=== PATIENT | male | born 1965 | race Caucasian/White ===

== ENCOUNTER 2020-04-27 19:15 | Outpatient (REF) | payer BC, SELFPAY ==
--- NOTE | 2020-04-27 19:45 | MR_ITS ---
EXAMINATION: MR LUMBAR SPINE WITHOUT CONTRAST CLINICAL INFORMATION: Back pain radiating to right leg. COMPARISON: None TECHNIQUE: MRI of the lumbar spine was obtained using routine sequences without contrast. FINDINGS: VERTEBRAL BODIES AND PARASPINAL STRUCTURES: The marrow signal is within normal limits. There is moderate multilevel disc space narrowing with endplate osteophyte formation. Mild posterior subluxation evident at the L2-L3 level. There is a very mild leftward curvature of the mid lumbar spine. No compression fractures identified. The paraspinal soft tissues appear normal. The imaged bony pelvis is unremarkable. CONUS MEDULLARIS AND CAUDA EQUINA: Normal, terminating at the level of L1. No lower cord signal abnormality is seen. There is a nondependent configuration of the cauda equina nerve roots within the thecal sac due to severity of central canal stenosis at L2-L3. SPINAL LEVELS: T11-T12: Anterior endplate spurring. No disc pathology. Moderate facet degeneration with hvsv-mb-unlpysjm foraminal encroachment. T12-L1: Shallow right paracentral disc protrusion with mild impression upon the ventral thecal sac. No central canal stenosis or foraminal narrowing. L1-L2: Diffuse disc bulge with anterior endplate spurring. Bulging disc distorts the ventral thecal sac. Mild central canal stenosis. Lateralized bulging disc without foraminal encroachment. L2-L3: Retrosubluxation and diffuse disc bulge with a right paracentral disc extrusion migrating inferiorly to the mid L3 vertebral body level. Hypertrophic facet arthropathy also present. Findings result in severe central canal stenosis and thecal sac compression. Presumptive mass effect upon both L3 nerve roots in the subarticular zones. Generalized disc bulge with xfci-fh-wxziziid foraminal encroachment. L3-L4: Diffuse disc bulge and shallow right paracentral disc protrusion with tlei-ux-lfjqmfuf facet arthropathy. Mild central canal stenosis. Exiting right L3 nerve root with mild distortion from lateralized bulging disc and endplate spurring. Moderate bilateral foraminal narrowing. L4-L5: Hypertrophic facet arthropathy without central canal stenosis. No focal disc protrusion or central canal stenosis. Mild right foraminal narrowing. L5-S1: Slight retrosubluxation and posterior disc bulge with facet spurring. No central canal stenosis. Right foraminal disc protrusion with mild distortion of the exiting right L5 nerve root. Left subarticular zone disc protrusion with facet spurring result in mass effect upon the left S1 nerve root. Osseous spurring and bulging disc result in significant left foraminal encroachment with distortion of the extraforaminal left L5 nerve root laterally. MR/MR lumbar spine wo con IMPRESSION: Moderate multilevel lumbar spondylosis, most severe at L2-L3 with a retrosubluxation, disc bulge, and facet arthropathy resulting in severe central canal stenosis. Additional significant thecal sac compression in part related to a right paracentral disc extrusion migrating inferiorly. Compression of both L3 nerve roots in the subarticular zones. Right paracentral disc protrusion at L3-L4 with mild central canal stenosis. Distortion of the right L3 nerve root due to a lateralized bulging disc and endplate spurring. Moderate foraminal narrowing. Retrosubluxation and disc bulge at L5-S1 with facet spurring. Right foraminal disc protrusion distorts the exiting right L5 nerve root. Left subarticular zone disc protrusion and facet spurring result in mass effect upon the left S1 nerve root. Additional lateralized bulging disc and endplate spurring with significant left foraminal encroachment and distortion of the extraforaminal left L5 nerve root.
== END 2020-04-27 19:16 | disposition home or self-care (01) ==
LOC: HO.MRI 19:15
PROVIDERS: Visit Provider Internal Medicine
DX: M54.41 Lumbago with sciatica, right side (principal)
CPT/HCPCS: 72148

== ENCOUNTER 2020-10-19 09:52 | Outpatient (REF) | payer BC, SELFPAY ==
--- NOTE | ~2020-10-19 | XR_ITS ---
EXAMINATION: XR ABDOMEN KUB CLINICAL INDICATION: Abdominal pain, constipation COMPARISON: None TECHNIQUE: AP view of the abdomen. FINDINGS: There is scattered is minimal gas seen in the small bowel loops. There is no colonic distention. There is no organomegaly. No radiopaque calculi seen. There is mild spondylosis lumbar spine. No lytic process. XR/XR KUB IMPRESSION: No acute process.
== END 2020-10-19 09:53 | disposition home or self-care (01) ==
LOC: HO.XRAY 09:52
PROVIDERS: PCP Internal Medicine; Visit Provider Internal Medicine
DX: R10.9 Unspecified abdominal pain (principal)
CPT/HCPCS: 74018

== ENCOUNTER 2020-10-20 10:12 | Outpatient (REF) | payer BC, SELFPAY ==
[2020-10-20 13:44] LABS: MANUAL DIFF FLAG NO
[2020-10-20 13:55] LABS: Basophils Absolute Auto 0.1 X10*3/uL (0.0-0.2); Basophils Percent Auto 0.5 % (0-2); Eosinophils Absolute Auto 0.3 X10*3/uL (0.0-0.4); Eosinophils Percent Auto 2.1 % (0-4); Hematocrit 44.1 % (42-52); Hemoglobin 14.6 g/dl (14.0-18.0); Imm Gran Abs Auto 0.07 X10*3/uL (0.00-0.03); Imm Gran Pct Auto 0.5 % (0.0-0.4); Lymphocytes Absolute Auto 3.6 X10*3/uL (1.2-4.9); Lymphocytes Percent Auto 27.6 % (20-40); Mean Corpuscular HGB Conc 33.1 g/dl (31.0-36.0); Mean Corpuscular Hemoglobin 29.7 pg (27.0-33.0); Mean Corpuscular Volume 89.8 fL (80-98); Mean Platelet Volume 11.3 fL (9.4-12.4); Monocytes Absolute Auto 0.8 X10*3/uL (0.1-1.2); Monocytes Percent Auto 5.7 % (2-11); Neutrophils Absolute Auto 8.4 X10*3/uL (2.0-8.3); Neutrophils Percent Auto 63.6 % (45-73); Platelet Count 344 X10*3/uL (160-400); Red Blood Count 4.91 X10*6/uL (4.60-5.80); White Blood Count 13.2 X10*3/uL (4.8-10.8)
[2020-10-20 14:40] LABS: Alanine Aminotransferase 37 U/L (0-40); Alkaline Phosphatase 87 U/L (39-117); Aspartate Amino Transferase 22 U/L (5-37); Chloride 106 mmol/L (96-108); Estimated Glomerular Filt Rate > 60; Potassium 4.5 mmol/L (3.3-5.1); Sodium 140 mmol/L (135-145); Total Protein 7.1 g/dL (6.5-8.0)
[2020-10-20 14:43] LABS: Albumin Level 4.3 g/dL (3.5-5.0); Anion Gap 15 (12-20); Blood Urea Nitrogen 13 mg/dL (9-16); C Reactive Protein 1.63 mg/dL (< or = 0.50); Calcium 10.2 mg/dL (8.4-10.2); Carbon Dioxide 24 mmol/L (22-29); Cholesterol 173 mg/dL; Glucose Random 78 mg/dL (60-115)
[2020-10-20 17:00] LABS: Bilirubin Total 0.3 mg/dL (0.0-1.0)
== END 2020-10-20 10:13 | disposition home or self-care (01) ==
LOC: HO.10HDL 10:12
PROVIDERS: Visit Provider Internal Medicine
DX: R10.9 Unspecified abdominal pain (principal); J45.909 Unspecified asthma, uncomplicated; K59.00 Constipation, unspecified; E78.5 Hyperlipidemia, unspecified
CPT/HCPCS: 36415; 80053; 82465; 85025; 86140

== ENCOUNTER 2020-10-27 11:48 | Outpatient (REF) | payer BC, SELFPAY ==
--- NOTE | ~2020-10-27 | CT_ITS ---
EXAMINATION: CT ABDOMEN AND PELVIS WITH CONTRAST CLINICAL INFORMATION: Left lower quadrant pain COMPARISON: KUB 10/12/2019 TECHNIQUE: Multidetector volumetric images were obtained from the superior aspect of the liver through the pubic symphysis following administration 85 mL of Omnipaque 350 intravenous contrast. Sagittal and coronal reformatted images were obtained on the technologist's workstation. Oral contrast: Yes This CT examination was performed using dose optimization techniques as appropriate, variously including the following: *Automated exposure control *Adjustment of mA and/or kV according to patient size (this includes techniques or standardized protocols for targeted exams where dose is matched to indication/reason for exam; i.e. extremities or head) *Use of iterative reconstruction technique DLP: 446 mGy-cm FINDINGS: LUNG BASES: The visualized lung bases are unremarkable. LIVER, GALLBLADDER, AND BILIARY TREE: The liver is low in attenuation suggestive of fatty infiltration. No focal liver lesion or biliary ductal dilatation is seen. The gallbladder is unremarkable with no evidence of radiopaque gallstones, gallbladder wall thickening, or obvious pericholecystic inflammatory changes. PANCREAS: Unremarkable. SPLEEN: Unremarkable. ADRENAL GLANDS: Unremarkable. KIDNEYS AND URETERS: The kidneys are normal in size, shape, and attenuation. No hydronephrosis, hydroureter, or calculi seen. No perinephric stranding. BLADDER: Not optimally distended GASTROINTESTINAL TRACT: There is diverticulosis of the colon. There is wall thickening of the distal left colon and stranding of the surrounding fat suggestive of mild diverticulitis. No evidence of obstruction, perforation or abscess is seen small and large bowel is otherwise unremarkable. ABDOMINAL WALL: No significant hernia is appreciated. LYMPH NODES: Normal. VASCULAR: There is evidence of atherosclerotic disease. No aneurysm is seen. PELVIC VISCERA: Unremarkable. OSSEOUS STRUCTURES: There are degenerative changes of the spine. CT/CT abdomen pelvis w con IMPRESSION: Left colon diverticulitis.
[2020-10-27] MEDS: iohexoL 350 MG/ML 100 ML INFUS..BTL IV (15:08)
[2020-10-27] MEDS: Barium Sulfate Oral (Mocha) 450 ML ORAL.SUSP 900 ML PO (15:09)
== END 2020-10-27 11:49 | disposition home or self-care (01) ==
LOC: HO.CT 11:48
PROVIDERS: PCP Internal Medicine; Visit Provider Internal Medicine
DX: R10.32 Left lower quadrant pain (principal); K57.32 Diverticulitis of large intestine without perforation or abscess without bleeding
CPT/HCPCS: 74177; Q9967

== ENCOUNTER → 2021-08-31 13:36 | Outpatient (RCR) | payer BC, SELFPAY ==
--- NOTE | 2020-02-13 16:57 | MHC.PT.EP ---
[facility] [place] Office [place] Office [place] Office [address] Cooper Bazzi [address] [phone] F: [phone] F: [phone] F: [phone] F: [phone] Physical Therapy Plan of Care Date of Evaluation: 02/13/20 Date of Surgery: Diagnosis: LBP Assessment: Pt is a 54 y/o male referred to PT for eval and treat of LBP who presents with signs and Sx consistent with lumbar radiculopathy resulting in decreased tolerance for sitting, standing and walking for duration, squatting and trunk flexion activities, lifting objects of weight, as well as disturbed sleep secondary to decreased trunk ROM and strength, decreased lumbar lordosis, R LE radicular Sx, (+) reduction in radicular Sx with Festus extension activities, and pain. Pt is deemed an appropriate candidate to receive skilled PT services to address his functional impairments in order to improve his function and return to PLOF which was unrestricted. Frequency and Duration: The patient will be seen 2x/wk x 5 wks. Short Term Goals: in 3 weeks: R LE radicular Sx abolished. In 1 week initiate HEP with evidence of compliance. Prison Goals: In 5 weeks: I with HEP. In 5 weeks: Pt will report no pain while walking; initial: pain prevents me from walking long distances. Treatment Plan: Modalities to reduce pain, spasms and effusion. Manual therapy to restore motion and function. Therapeutic exercise to improve strength and flexibility. Neuromuscular re-education for posture and balance. Therapeutic activities to return to functional activities of daily living. Please sign and return to therapist. Thank you for your referral.
--- NOTE | 2020-05-10 08:27 | MHC.PT.DC ---
[facility] [place] Office [place] Office [place] Office [address] Cooper Bazzi [address] [phone] F: [phone] F: [phone] F: [phone] F: [phone] Physical Therapy Discharge Report Diagnosis: LBP Date of Surgery: Date of Evaluation: 02/13/20 Date of Discharge: 04/20/20 Treatments to Date: 15 Cancellations to Date: 0 No Shows to Date: 0 Discharge Status: Independent with HEP Patient Elected to Stop Physician Discontinued Tx Discharge Summary: Jam had been an active participant in his therapy in the clinic having significantly improved his symptoms while on light work duty though he regressed also significantly with increased demands at work. He received an MRI and will be seeking other management at this time. Electronically signed by: Hayden Camarillo PT. Please sign and return to therapist. Thank you for your referral.
--- NOTE | 2020-06-28 16:27 | MHC.PT.EP ---
[facility] [place] Office [place] Office [place] Office [address] Cooper Bazzi [address] [phone] F: [phone] F: [phone] F: [phone] F: [phone] Physical Therapy Plan of Care Date of Evaluation: 04/20/20 Date of Surgery: Diagnosis: LBP Assessment: Pt is a 54 y/o male referred to PT for eval and treat of LBP who presents with signs and Sx consistent with lumbar radiculopathy resulting in decreased tolerance for sitting, standing and walking for duration, squatting and trunk flexion activities, lifting objects of weight, as well as disturbed sleep secondary to decreased trunk ROM and strength, decreased lumbar lordosis, R LE radicular Sx, (+) reduction in radicular Sx with Festus extension activities, and pain. Pt is deemed an appropriate candidate to receive skilled PT services to address his functional impairments in order to improve his function and return to PLOF which was unrestricted. Frequency and Duration: The patient will be seen 2x/wk x 5 wks. Short Term Goals: in 3 weeks: R LE radicular Sx abolished. In 1 week initiate HEP with evidence of compliance. Long-Term Goals: In 5 weeks: I with HEP. In 5 weeks: Pt will report no pain while walking; initial: pain prevents me from walking long distances. Treatment Plan: Modalities to reduce pain, spasms and effusion. Manual therapy to restore motion and function. Therapeutic exercise to improve strength and flexibility. Neuromuscular re-education for posture and balance. Therapeutic activities to return to functional activities of daily living. Electronically signed by: Hayden Camarillo PT. Please sign and return to therapist. Thank you for your referral.
== END | disposition home or self-care (01) ==
LOC: HO.PTCHIC 02-13 14:49
PROVIDERS: PCP Internal Medicine; Visit Provider Internal Medicine
DX: M54.5 Low back pain (principal)
CPT/HCPCS: 97012; 97014; 97110; 97140; 97161

== ENCOUNTER 2022-10-02 10:31 | Outpatient (REF) | payer OTHER, SELFPAY ==
[2022-10-02 13:17] LABS: MANUAL DIFF FLAG NO
[2022-10-02 13:21] LABS: Basophils Absolute Auto 0.1 X10*3/uL (0.0-0.2); Basophils Percent Auto 0.6 % (0-2); Eosinophils Absolute Auto 0.2 X10*3/uL (0.0-0.4); Eosinophils Percent Auto 1.5 % (0-4); Hemoglobin 17.2 g/dl (14.0-18.0); Imm Gran Abs Auto 0.09 X10*3/uL (0.00-0.03); Imm Gran Pct Auto 0.6 % (0.0-0.4); Lymphocytes Absolute Auto 3.9 X10*3/uL (1.2-4.9); Lymphocytes Percent Auto 27.6 % (20-40); Mean Corpuscular HGB Conc 33.7 g/dl (31.0-36.0); Mean Corpuscular Hemoglobin 30.2 pg (27.0-33.0); Mean Corpuscular Volume 89.5 fL (80.0-98.0); Mean Platelet Volume 11.6 fL (9.4-12.4); Monocytes Absolute Auto 0.9 X10*3/uL (0.1-1.2); Monocytes Percent Auto 6.1 % (2-11); Neutrophils Absolute Auto 8.9 x10*3/uL (2.0-8.3); Neutrophils Percent Auto 63.6 % (45-73); Platelet Count 227 X10*3/uL (160-400); Red Cell Distribution Width 12.8 % (11.0-16.0)
[2022-10-02 13:42] LABS: Alanine Aminotransferase 83 U/L (0-40); Albumin Level 4.4 g/dL (3.5-5.0); Alkaline Phosphatase 81 U/L (39-117); Anion Gap 14 (12-20); Aspartate Amino Transferase 43 U/L (5-37); Bilirubin Total 0.7 mg/dL (0.0-1.0); Blood Urea Nitrogen 7 mg/dL (9-16); Calcium 10.3 mg/dL (8.4-10.2); Carbon Dioxide 23 mmol/L (22-29); Chloride 105 mmol/L (96-108); Cholesterol 186 mg/dL; Estimated Glomerular Filt Rate > 60; Glucose Random 95 mg/dL (60-115); HDL Cholesterol 28 mg/dL; LDL Cholesterol Calculated 111 mg/dl; Potassium 4.8 mmol/L (3.3-5.1); Sodium 137 mmol/L (135-145); Total Protein 7.2 g/dL (6.5-8.0); Triglycerides 236 mg/dL
[2022-10-02 13:51] LABS: Prostate Specific Antigen 0.56 ng/mL (<0.05-4.0)
== END 2022-10-02 10:32 | disposition home or self-care (01) ==
LOC: HO.10HDL 10:31
PROVIDERS: Visit Provider Internal Medicine
DX: Z12.5 Encounter for screening for malignant neoplasm of prostate (principal); E78.00 Pure hypercholesterolemia, unspecified; J45.909 Unspecified asthma, uncomplicated; G62.9 Polyneuropathy, unspecified
CPT/HCPCS: 36415; 80053; 80061; 84153; 85025

== ENCOUNTER 2022-10-11 10:04 | Outpatient (REF) | payer OTHER, SELFPAY ==
[2022-10-11 10:56] LABS: Appearance Urine Clear; Color Urine Yellow; Glucose Urine UA Negative (Negative); Leukocyte Esterase Urine Negative (Negative); Nitrite Urine Negative (Negative); PH 6.5 (5.0-9.0); Specific Gravity - Urine <= 1.005 (1.005-1.025); Urine Blood Negative (Negative); Urine Ketones Negative (Negative); Urine Protein Negative (Neg-Trace)
[2022-10-11 12:17] LABS: Free T4 (Free Thyroxine) 0.96 ng/dL (0.71-1.85); Thyroid Stimulating Hormone 1.02 uIU/mL (0.32-4.0)
== END 2022-10-11 10:05 | disposition home or self-care (01) ==
LOC: HO.10HDL 10:04
PROVIDERS: Visit Provider Internal Medicine
DX: R63.4 Abnormal weight loss (principal); K57.32 Diverticulitis of large intestine without perforation or abscess without bleeding
CPT/HCPCS: 36415; 81003; 84439; 84443

== ENCOUNTER 2023-02-13 10:00 | Outpatient (REF) | payer OTHER, SELFPAY ==
[2023-02-13 10:49] LABS: MANUAL DIFF FLAG NO
[2023-02-13 10:52] LABS: Basophils Absolute Auto 0.1 X10*3/uL (0.0-0.2); Basophils Percent Auto 0.5 % (0-2); Eosinophils Absolute Auto 0.1 X10*3/uL (0.0-0.4); Eosinophils Percent Auto 1.2 % (0-4); Hematocrit 51.4 % (42.0-52.0); Hemoglobin 17.4 g/dl (14.0-18.0); Imm Gran Abs Auto 0.07 X10*3/uL (0.00-0.03); Imm Gran Pct Auto 0.6 % (0.0-0.4); Lymphocytes Absolute Auto 3.4 X10*3/uL (1.2-4.9); Lymphocytes Percent Auto 28.9 % (20-40); Mean Corpuscular HGB Conc 33.9 g/dl (31.0-36.0); Mean Corpuscular Volume 88.6 fL (80.0-98.0); Monocytes Absolute Auto 0.7 X10*3/uL (0.1-1.2); Monocytes Percent Auto 5.6 % (2-11); Neutrophils Absolute Auto 7.4 x10*3/uL (2.0-8.3); Neutrophils Percent Auto 63.2 % (45-73); Platelet Count 242 X10*3/uL (160-400); Red Cell Distribution Width 12.8 % (11.0-16.0); White Blood Count 11.6 X10*3/uL (4.8-10.8)
[2023-02-13 11:37] LABS: Alanine Aminotransferase 58 U/L (0-40); Albumin Level 4.5 g/dL (3.5-5.0); Alkaline Phosphatase 79 U/L (39-117); Anion Gap 12 (12-20); Aspartate Amino Transferase 37 U/L (5-37); Bilirubin Total 0.6 mg/dL (0.0-1.0); Blood Urea Nitrogen 10 mg/dL (9-16); Calcium 10.4 mg/dL (8.4-10.2); Carbon Dioxide 27 mmol/L (22-29); Chloride 105 mmol/L (96-108); Cholesterol 185 mg/dL (<200); Estimated Glomerular Filt Rate > 60; Glucose Fasting 105 mg/dL (60-99); HDL Cholesterol 25 mg/dL (>40); LDL Cholesterol Calculated 119 mg/dL (<100); Potassium 4.4 mmol/L (3.3-5.1); Sodium 140 mmol/L (135-145); Total Protein 7.6 g/dL (6.5-8.0); Triglycerides 206 mg/dL (<150)
== END 2023-02-13 10:01 | disposition home or self-care (01) ==
LOC: HO.10HDL 10:00
PROVIDERS: Visit Provider Internal Medicine
DX: E78.5 Hyperlipidemia, unspecified (principal); R79.89 Other specified abnormal findings of blood chemistry
CPT/HCPCS: 36415; 80053; 80061; 85025

== ENCOUNTER 2023-03-19 09:13 | Outpatient (REF) | payer OTHER, SELFPAY ==
[2023-03-19 11:33] LABS: Alanine Aminotransferase 55 U/L (0-40); Albumin Level 4.4 g/dL (3.5-5.0); Alkaline Phosphatase 82 U/L (39-117); Aspartate Amino Transferase 28 U/L (5-37); Bilirubin Direct 0.2 mg/dL (0.0-0.5); Bilirubin Total 0.4 mg/dL (0.0-1.0); Iron 72 mcg/dL (45-160); Percent Iron Saturation 22 % (15-50); Total Iron Binding Capacity 329 mcg/dL (228-428); Total Protein 7.4 g/dL (6.5-8.0); Unsaturated Iron Binding 257 ug/dL
[2023-03-19 11:41] LABS: Ferritin 160 ng/mL (20-250)
[2023-03-19 11:54] LABS: HBS Num1 9.84 mIU/mL (0-7.99); HBc Num1 0.17 S/CO (0.00-0.79); Hepatitis B Core Antibody Nonreactive (Nonreactive); Hepatitis B Surface Antigen Negative (Negative); ~HepC Num1 0.12 S/CO (0.00-0.79); ~Hepatitis C Antibody Nonreactive (Nonreactive)
[2023-03-19 12:48] LABS: HBS Num2 9.62 mIU/mL (0-7.99); HBS Num3 9.67 mIU/mL (0-7.99); ~Hepatitis B Surface Antibody GRAYZONE (Nonreactive)
[2023-03-20 11:13] LABS: Alpha 1 Anti-trypsin 138 mg/dL (83-199)
[2023-03-21 09:33] LABS: Anti Nuclear Antibody Screen NEGATIVE (NEGATIVE)
[2023-03-22 10:00] LABS: Smooth Muscle Antibody <20 U (<20)
[2023-03-22 15:28] LABS: Mitochondrial Antibodies NEGATIVE (NEGATIVE)
[2023-03-23 00:23] LABS: FIB-ALT 49 U/L (9-46); FIB-Alpha-2-Macroglobulin 299 mg/dL (106-279); FIB-Apolipoprotein A1 108 mg/dL (94-176); FIB-GGT 37 U/L (3-85); FIB-Haptoglobin 136 mg/dL (43-212); FIB-Total Bilirubin 0.4 mg/dL (0.2-1.2); Liver Fibrosis Score 0.53; Liver Fibrosis Stage F2; Nec Inflam Act Grade A1; Nec Inflam Act Score 0.36
== END 2023-03-19 09:14 | disposition home or self-care (01) ==
LOC: HO.10HDL 09:13
PROVIDERS: Visit Provider Internal Medicine
DX: R74.8 Abnormal levels of other serum enzymes (principal); K76.0 Fatty (change of) liver, not elsewhere classified
CPT/HCPCS: 36415; 80076; 81596; 82103; 82728; 83540; 86015; 86038; 86381; 86704; 86706; 86803; 87340

== ENCOUNTER 2023-06-22 07:11 | Day surgery (SDC) | payer OTHER, SELFPAY ==
[2023-06-20 14:31] VITALS: BMI 32.6
--- NOTE | 2023-06-20 14:53 | P.CONAN_ITS ---
Documented by User: Diana Dickey NP 06/20/23 14:54 HPI - Anesthesia Eval Consult details Narrative: 57yo M for Colonoscopy [facility] Past Medical History Medical History Fatty liver Diverticulitis Renal calculi Asthma Surgical History Surgical History Hx of eye surgery History of back surgery Social History Social History Patient Tobacco Use Status: Current everyday Tobacco user Tobacco use type: Cigarette Cigarette Packs Per Day: 0.5 Cigarettes Per Day: 10.0 Second Hand Smoke Exposure: No Use of substances other than those prescribed or required for medical reasons: No Are you DNR?: No Advance Directives: No Advance Directives Information Provided: Yes Advance Directives on File: No Meds Allergies Allergy/AdvReac Type Severity Reaction Status Date / Time No Known Allergies Allergy Unverified 06/20/23 07:57 Home Medications Medication Instructions Recorded Confirmed Last Taken Type albuterol sulfate 90 mcg/actuation 2 puff inhalation QID PRN 06/20/23 06/20/23 Unknown History aerosol inhaler (Ventolin HFA) Shortness Of Breath Or Wheezing budesonide-formoterol HFA 160 1 puff inhalation BID 06/20/23 06/20/23 Unknown History mcg-4.5 mcg/actuation aerosol inhaler (Symbicort) multivitamin 1 tab PO DAILY 06/20/23 06/20/23 Unknown History Exam Height,Weight and Vital Signs: Height 5 ft 7 in Weight 94.347 kg Pertinent Lab Results Pertinent Lab Results: Laboratory Tests 02/13/23 10:10 WBC 11.6 H Hgb 17.4 Hct 51.4 Plt Count 242 Sodium 140 Potassium 4.4 Chloride 105 Carbon Dioxide 27 BUN 10 Creatinine 0.90 Assessment and Plan Assessment Anesthesia Assessment: Chart Reviewed Documented by User: Maribel Guerrero MD 06/22/23 08:16 PMFSH Past Medical History Medical History Fatty liver Diverticulitis Renal calculi Asthma Surgical History Surgical History Hx of eye surgery History of back surgery History of Problems with Anesthesia: No Social History Social History Patient Tobacco Use Status: Current everyday Tobacco user Tobacco use type: Cigarette Cigarette Packs Per Day: 0.5 Cigarettes Per Day: 10.0 Second Hand Smoke Exposure: No Use of substances other than those prescribed or required for medical reasons: No Are you DNR?: No Advance Directives: No Advance Directives Information Provided: Yes Advance Directives on File: No Meds Allergies Allergy/AdvReac Type Severity Reaction Status Date / Time No Known Allergies Allergy Unverified 06/20/23 07:57 Home Medications Medication Instructions Recorded Confirmed Last Taken Type albuterol sulfate 90 mcg/actuation 2 puff inhalation QID PRN 06/20/23 06/20/23 Unknown History aerosol inhaler (Ventolin HFA) Shortness Of Breath Or Wheezing budesonide-formoterol HFA 160 1 puff inhalation BID 06/20/23 06/20/23 Unknown History mcg-4.5 mcg/actuation aerosol inhaler (Symbicort) multivitamin 1 tab PO DAILY 06/20/23 06/20/23 Unknown History Exam Airway Mallampati Class: II TM Dist: >3cm Neck ROM: Full Denture: Upper and Lower Loose/Missing/Broken Teeth: Yes, Upper and Lower Heart: RRR Lungs: CTA Assessment and Plan Assessment Anesthesia Assessment: Anesthesia Plan Discussed Final Anesthetic Review History of Problems with Anesthesia: No NPO: Yes ASA Class: II Patient Risk: Low Procedure Risk: Low Anesthetic Plan Anesthetic Plan: MAC: Disposition: Standard PACU
[2023-06-22 07:57] VITALS: BMI 33.2
[2023-06-22 08:04] VITALS: BP 144/86; PULSE 98; RESP 16; TEMP 36.9; O2SAT 98
[2023-06-22] MEDS: Lactated Ringers 1,000 ML 100 ML IVCONT (08:11)
[2023-06-22 09:26] VITALS: BP 102/65; PULSE 93; RESP 16; TEMP 36.6; O2SAT 96
--- NOTE | 2023-06-22 09:27 | P.BOP_ITS ---
Brief Operative Note Date of Service: 06/22/23 Pre-op diagnosis: Screening Post-op diagnosis: other (Polyps) Procedure: Colonoscopy to the cecum and TI with bx/removal of polyps Surgeon: Chandan Dozier MD Anesthesia: MAC Was an Prototype Engineer Manager used for this Procedure?: No Estimated blood loss (mL): 2.0 Pathology: other (A. Transverse colon polyp B. Polyp at 60cm C. Polyp at 20cm) Condition: stable Disposition: PACU
[2023-06-22 09:41] VITALS: BP 134/80; PULSE 84; RESP 16; TEMP 36.6; O2SAT 97
--- NOTE | 2023-06-22 10:11 | OP_ITS ---
DATE OF SERVICE: 06/22/2023 SURGEON: Chandan Dozier MD INDICATIONS: The patient presents for evaluation of colorectal cancer screening. Full consent has been obtained from him for this, including risks of bleeding and perforation. PREOPERATIVE DIAGNOSIS: Colorectal cancer screening. POSTOPERATIVE DIAGNOSIS: PROCEDURE PERFORMED: Colonoscopy to the cecum and terminal ileum with biopsy and removal of polyps. ESTIMATED BLOOD LOSS: COMPLICATIONS: ANESTHESIA: Monitored anesthesia care. ASSISTANTS: SPECIMENS: POSTOPERATIVE DIAGNOSES: Colorectal cancer screening, small colon polyps, diverticulosis, internal hemorrhoids. DESCRIPTION OF PROCEDURE: The patient was placed in the left lateral decubitus position. The digital rectal exam revealed no abnormalities. The Olympus video pediatric colonoscope was entered into the rectum and advanced easily to the cecum. Once in the cecum, I did identify normal-appearing cecal pouch with appendiceal orifice, and a normal-appearing ileocecal valve. The terminal ileum was cannulated and appeared normal. The scope was withdrawn back in the colon. The entire cecum and ileocecal valve appeared normal. The scope was slowly withdrawn assessing all mucosal surfaces carefully. Preparation was excellent. In the transverse colon, at 60 cm and at 20 cm were flat less than 5 mm polyps, which were all biopsied and completely removed with a cold biopsy forceps. There was a mild amount of sigmoid diverticulosis. In the rectum, scope was retroflexed visualizing internal hemorrhoids, but no other pathology. The rectal mucosa appeared normal. The scope was straightened and withdrawn from the patient. He tolerated the procedure well and was returned to the recovery area in stable condition. IMPRESSION: 1. Small colon polyps. 2. Diverticulosis. 3. Internal hemorrhoids. PLAN: The results of the biopsies will be checked. If any of these are tubular adenomas, I would recommend a followup coloscopy in 5 years. If they are all hyperplastic, I would recommend a followup coloscopy in 10 years. He will otherwise see me on a p.r.n. basis. His recent liver workup in regard to the slightly elevated LFTs was completely negative. We did review his history of fatty liver and the need to watch his weight, his diet, and avoid alcohol. Most recent liver profile was just minimally elevated, and I do not think he needs any further workup at this time. MD PATRICK Briscoe/JENNYL / [id number]
== END 2023-06-22 10:05 | disposition home or self-care (01) ==
PROVIDERS: PCP Internal Medicine; Visit Provider Internal Medicine
PROC: 0DJD8ZZ Inspection of Lower Intestinal Tract, Via Natural or Artificial Opening Endoscopic (ICD-10-PCS; CPT 45378; principal; 2023-06-22 08:40)
DX: Z12.11 Encounter for screening for malignant neoplasm of colon (principal); D12.3 Benign neoplasm of transverse colon; D12.4 Benign neoplasm of descending colon; K57.30 Diverticulosis of large intestine without perforation or abscess without bleeding; K64.8 Other hemorrhoids
CPT/HCPCS: 45380; 88305; J2704

== ENCOUNTER 2023-09-28 09:10 | Outpatient (REF) | payer OTHER, SELFPAY ==
[2023-09-28 10:59] LABS: MANUAL DIFF FLAG NO
[2023-09-28 11:10] LABS: Basophils Absolute Auto 0.1 X10*3/uL (0.0-0.2); Basophils Percent Auto 0.6 % (0-2); Eosinophils Absolute Auto 0.2 X10*3/uL (0.0-0.4); Eosinophils Percent Auto 1.8 % (0-4); Hematocrit 50.4 % (42.0-52.0); Imm Gran Abs Auto 0.06 X10*3/uL (0.00-0.03); Imm Gran Pct Auto 0.5 % (0.0-0.4); Lymphocytes Absolute Auto 3.3 X10*3/uL (1.2-4.9); Lymphocytes Percent Auto 25.1 % (20-40); Mean Corpuscular HGB Conc 33.7 g/dl (31.0-36.0); Mean Platelet Volume 11.6 fL (9.4-12.4); Monocytes Absolute Auto 0.7 X10*3/uL (0.1-1.2); Monocytes Percent Auto 5.6 % (2-11); Neutrophils Absolute Auto 8.7 x10*3/uL (2.0-8.3); Neutrophils Percent Auto 66.4 % (45-73); Platelet Count 240 X10*3/uL (160-400); Red Blood Count 5.66 X10*6/uL (4.60-5.80); White Blood Count 13.1 X10*3/uL (4.8-10.8)
[2023-09-28 11:35] LABS: Alanine Aminotransferase 55 U/L (0-40); Albumin Level 4.3 g/dL (3.5-5.0); Alkaline Phosphatase 87 U/L (39-117); Anion Gap 10 (12-20); Aspartate Amino Transferase 25 U/L (5-37); Bilirubin Total 0.4 mg/dL (0.0-1.0); Blood Urea Nitrogen 9 mg/dL (9-16); Calcium 10.3 mg/dL (8.4-10.2); Carbon Dioxide 25 mmol/L (22-29); Chloride 108 mmol/L (96-108); Cholesterol 186 mg/dL (<200); Estimated Glomerular Filt Rate > 60; Glucose Fasting 100 mg/dL (60-99); HDL Cholesterol 25 mg/dL (>40); LDL Cholesterol Calculated 101 mg/dL (<100); Potassium 4.1 mmol/L (3.3-5.1); Sodium 139 mmol/L (135-145); Total Protein 7.4 g/dL (6.5-8.0); Triglycerides 302 mg/dL (<150)
[2023-09-28 11:55] LABS: Free T4 (Free Thyroxine) 0.81 ng/dL (0.71-1.85); Thyroid Stimulating Hormone 1.46 uIU/mL (0.32-4.0)
[2023-09-28 11:56] LABS: Prostate Specific Antigen Scr 0.75 ng/mL (<0.05-4.0)
== END 2023-09-28 09:11 | disposition home or self-care (01) ==
LOC: HO.10HDL 09:10
PROVIDERS: Visit Provider Internal Medicine
DX: E78.5 Hyperlipidemia, unspecified (principal); R79.89 Other specified abnormal findings of blood chemistry
CPT/HCPCS: 36415; 80053; 80061; 84153; 84439; 84443; 85025

== ENCOUNTER 2023-12-13 08:45 | Outpatient (REF) | payer OTHER, SELFPAY ==
[2023-12-13 09:57] LABS: Cholesterol 165 mg/dL (<200); HDL Cholesterol 26 mg/dL (>40); LDL Cholesterol Calculated 98 mg/dL (<100); Triglycerides 209 mg/dL (<150)
== END 2023-12-13 08:46 | disposition home or self-care (01) ==
LOC: HO.LAB 08:45
PROVIDERS: PCP Internal Medicine; Visit Provider Internal Medicine
DX: E78.5 Hyperlipidemia, unspecified (principal)
CPT/HCPCS: 36415; 80061

== ENCOUNTER 2024-05-09 09:00 | Outpatient (REF) | payer OTHER, SELFPAY ==
[2024-05-09 10:20] LABS: Alanine Aminotransferase 87 U/L (0-40); Albumin Level 4.1 g/dL (3.5-5.0); Alkaline Phosphatase 93 U/L (39-117); Anion Gap 10 (12-20); Aspartate Amino Transferase 55 U/L (5-37); Bilirubin Total 0.3 mg/dL (0.0-1.0); Blood Urea Nitrogen 14 mg/dL (9-16); Calcium 10.4 mg/dL (8.4-10.2); Carbon Dioxide 22 mmol/L (22-29); Chloride 110 mmol/L (96-108); Cholesterol 190 mg/dL (<200); Estimated Glomerular Filt Rate > 60; Glucose Fasting 104 mg/dL (60-99); HDL Cholesterol 25 mg/dL (>40); LDL Cholesterol Calculated 116 mg/dL (<100); Potassium 4.7 mmol/L (3.3-5.1); Sodium 137 mmol/L (135-145); Total Protein 7.5 g/dL (6.5-8.0); Triglycerides 245 mg/dL (<150)
== END 2024-05-09 09:01 | disposition home or self-care (01) ==
LOC: HO.LAB 09:00
PROVIDERS: PCP Internal Medicine; Visit Provider Internal Medicine
DX: E78.5 Hyperlipidemia, unspecified (principal)
CPT/HCPCS: 36415; 80053; 80061

== ENCOUNTER 2024-11-21 09:10 | Outpatient (REF) | payer OTHER, SELFPAY ==
[2024-11-21 10:17] LABS: MANUAL DIFF FLAG NO
[2024-11-21 10:57] LABS: Hematocrit 47.7 % (42.0-52.0); Hemoglobin 16.4 g/dl (14.0-18.0); Imm Gran Abs Auto 0.05 X10*3/uL (0.00-0.03); Imm Gran Pct Auto 0.5 % (0.0-0.4); Lymphocytes Absolute Auto 3.4 X10*3/uL (1.2-4.9); Mean Corpuscular HGB Conc 34.4 g/dl (31.0-36.0); Mean Corpuscular Hemoglobin 29.8 pg (27.0-33.0); Mean Corpuscular Volume 86.7 fL (80.0-98.0); NRBC Abs Auto 0.000 X10*3/uL (0.0-0.012); NRBC Pct Auto 0.0 /100WBC (0.0-0.2); Platelet Count 258 X10*3/uL (160-400); Red Blood Count 5.50 X10*6/uL (4.60-5.80); White Blood Count 10.0 X10*3/uL (4.8-10.8)
[2024-11-21 11:45] LABS: Folate 13.8 ng/mL (> or = 4.0); Prostate Specific Antigen 0.69 ng/mL (<0.05-4.0); Vitamin B12 610 pg/mL (200-900)
[2024-11-21 11:48] LABS: Alanine Aminotransferase 72 U/L (0-40); Albumin Level 4.6 g/dL (3.5-5.0); Alkaline Phosphatase 94 U/L (39-117); Anion Gap 9 (12-20); Aspartate Amino Transferase 48 U/L (5-37); Blood Urea Nitrogen 8 mg/dL (9-16); Calcium 10.2 mg/dL (8.4-10.2); Carbon Dioxide 25 mmol/L (22-29); Chloride 108 mmol/L (96-108); Cholesterol 176 mg/dL (<200); Estimated Glomerular Filt Rate > 60; HDL Cholesterol 24 mg/dL (>40); Potassium 4.4 mmol/L (3.3-5.1); Sodium 138 mmol/L (135-145); Total Protein 7.6 g/dL (6.5-8.0); Triglycerides 224 mg/dL (<150)
[2024-11-21 12:31] LABS: Hemoglobin A1C 153.8411 umol/L; Total Hemoglobin (HGBA1C) 4300.8749 umol/L
== END 2024-11-21 09:11 | disposition home or self-care (01) ==
LOC: HO.LAB 09:10
PROVIDERS: PCP Internal Medicine; Visit Provider Internal Medicine
DX: Z13.228 Encounter for screening for other metabolic disorders (principal); Z12.5 Encounter for screening for malignant neoplasm of prostate; K76.0 Fatty (change of) liver, not elsewhere classified; R63.2 Polyphagia; J45.909 Unspecified asthma, uncomplicated; Z98.890 Other specified postprocedural states
CPT/HCPCS: 36415; 80053; 80061; 82533; 82607; 82746; 83036; 84153; 84443; 85025; 99202

== ENCOUNTER 2024-11-21 09:10 | Outpatient (AMB) | payer OTHER, SELFPAY ==
--- NOTE | 2024-11-21 09:16 | MHC.PC.OV ---
Vital Signs 11/21/24 09:18 11/21/24 09:20 Height 5 ft 7 in Weight 220 lb BMI 34.5 BP 110/66 Blood Pressure Location Lt brachial Position Sitting Respiration 16 Pulse 92 Pulse Source Pulse Oximeter Temp 98.3 F Temp Source Temporal Artery Scan Pulse Oximetry (%) 95 Oxygen Delivery Method Room Air Intake Visit Reasons: follow up-Croke pt Unified Communications Engineer Required: No Accompanied by: Self / Same As Patient Allergies No Known Allergies Allergy (Verified 11/21/24 09:17) Tobacco use date assessed: 11/21/24 HPI HPI Comments History of Present Illness Details The patient is a 59 year old male with past medical history of dyslipidemia, back pain, kidney stone, constipation presenting to [facility] care. Dyslipidemia-on fenofibrate. He is frustated by weight gain. COPD/astham-on symbicort, albuterol. Request refills 06/23/2023 colonoscopy ROS CONSTITUTIONAL: Denies weight loss, fever and chills. HEENT: Denies changes in vision and hearing. RESPIRATORY: Denies SOB and cough. CV: Denies palpitations and CP GI: Denies abdominal pain, nausea, vomiting and diarrhea. : Denies dysuria and urinary frequency. MSK: Denies new myalgia and joint pain. SKIN: Denies rash and pruritus. NEUROLOGICAL: Denies headache PSYCHIATRIC: Denies recent changes in mood. PHYSICAL EXAM: GENERAL: Alert and oriented x 3. NAD EYES: EOMI. Anicteric. HENT: Moist mucous membranes. No scleral icterus. No cervical lymphadenopathy. LUNGS: Clear to auscultation bilaterally. CARDIOVASCULAR: Regular rate and rhythm. No murmur. No JVD. ABDOMEN: Soft, non-tender +bs EXTREMITIES: No edema. Non-tender. SKIN: No rashes or lesions. Warm. NEUROLOGIC: No focal neurological deficits. CN II-XII grossly intact PSYCHIATRIC: Cooperative. Appropriate mood and affect [facility] Medical History Fatty liver Diverticulitis Renal calculi Asthma Surgical History History of colonoscopy (~06/22/23) Hx of eye surgery History of back surgery Social History Patient Tobacco Use Status: Current everyday Tobacco user Tobacco use type: Cigarette Cigarette Packs Per Day: 0.5 Cigarettes Per Day: 10.0 e-Cigarette/Vaping Use: Never Used Second Hand Smoke Exposure: No Questionnaire AUDIT C Alcohol Use Questionnaire (AUDIT-C) 1. How often do you have a drink containing alcohol?: Never Total Score: 0 Physical exam (Primary Care) Vital Signs: Last Vital Signs Temp 98.3 F 11/21/24 09:20 Pulse 92 11/21/24 09:20 Resp 16 11/21/24 09:20 BP 110/66 11/21/24 09:20 Pulse Ox 95 11/21/24 09:20 Oxygen Delivery Method Room Air 11/21/24 09:20 BMI result Body Mass Index 34.5 Tobacco/Smoking Status: Tobacco use Status Tobacco use date assessed 11/21/24 11/21/24 09:22 Patient Tobacco Use Status Current everyday Tobacco 11/21/24 09:22 Tobacco use type Cigarette 11/21/24 09:22 e-Cigarette/Vaping Use Never Used 11/21/24 09:22 Coding Level of Care Code New Pt Level 4 (74415) Complex EM visit Add On G2211 Diagnoses Fatty liver K76.0 Excessive hunger R63.2 Asthma, unspecified asthma severity, unspecified whether complicated, unspecified whether persistent J45.909 Asthma complication type: unspecified Asthma persistence: unspecified Asthma severity: unspecified severity Assessment & Plan Assessment & Plan (1) Fatty liver: Code(s): K76.0 - Fatty (change of) liver, not elsewhere classified Category: Medical (2) Excessive hunger: Code(s): R63.2 - Polyphagia Category: Medical (3) Asthma: Code(s): J45.909 - Unspecified asthma, uncomplicated Category: Medical Qualifiers: Asthma complication type: unspecified Asthma persistence: unspecified Asthma severity: unspecified severity Qualified Code(s): J45.909 - Unspecified asthma, uncomplicated Plan 59 year old to establish care past medical, surgical, social reviewed weight gain-phentermine trial HLD-continue. on fenofibrate Orders: Orders Comprehensive Met. Panel 11/21/24 J45.909 - Unspecified asthma, uncomplicated, K76.0 - Fatty (change of) liver, not elsewhere classified, R63.2 - Polyphagia, Z13.228 - Encounter for screening for other metabolic disorders, Z98.890 - Other specified postprocedural states TSH reflex Free T4 11/21/24 [facility].909 - Unspecified asthma, uncomplicated, K76.0 - Fatty (change of) liver, not elsewhere classified, R63.2 - Polyphagia, Z13.228 - Encounter for screening for other metabolic disorders, Z98.890 - Other specified postprocedural states Hemoglobin A1c 11/21/24 [facility] - Unspecified asthma, uncomplicated, K76.0 - Fatty (change of) liver, not elsewhere classified, R63.2 - Polyphagia, Z13.228 - Encounter for screening for other metabolic disorders, Z98.890 - Other specified postprocedural states Complete Blood Count Auto Diff 11/21/24 [facility].90 - Unspecified asthma, uncomplicated, K76.0 - Fatty (change of) liver, not elsewhere classified, R63.2 - Polyphagia, Z13.228 - Encounter for screening for other metabolic disorders, Z98.890 - Other specified postprocedural states Lipid Panel 11/21/24 [facility].9 - Unspecified asthma, uncomplicated, K76.0 - Fatty (change of) liver, not elsewhere classified, R63.2 - Polyphagia, Z13.228 - Encounter for screening for other metabolic disorders, Z98.890 - Other specified postprocedural states Cortisol Random 11/21/24 [facility].909 - Unspecified asthma, uncomplicated, K76.0 - Fatty (change of) liver, not elsewhere classified, R63.2 - Polyphagia, Z13.228 - Encounter for screening for other metabolic disorders, Z98.890 - Other specified postprocedural states Prostate Specific Antigen 11/21/24 [facility] - Unspecified asthma, uncomplicated, K76.0 - Fatty (change of) liver, not elsewhere classified, R63.2 - Polyphagia, Z13.228 - Encounter for screening for other metabolic disorders, Z98.890 - Other specified postprocedural states Vitamin B12 and Folate 11/21/24 [facility].9 - Unspecified asthma, uncomplicated, K76.0 - Fatty (change of) liver, not elsewhere classified, R63.2 - Polyphagia, Z13.228 - Encounter for screening for other metabolic disorders, Z98.890 - Other specified postprocedural states Medications: New phentermine must administer 30 minutes before or 1-2 hours after breakfast run with good rx if not covered by insurance [id number] [facility] [id number] Member [id number] 37.5 mg PO DAILY 90 caps 3RF E66.9 - Obesity, unspecified Refilled budesonide-formoterol 160-4.5 mcg/actuation (Symbicort) 1 puff inhalation BID 10.2 grams 3RF Ventolin HFA 90 mcg/actuation (albuterol sulfate) 2 puffs inhalation QID PRN 18 grams 3RF Shortness Of Breath Or Wheezing NS
[2024-11-21 09:18] VITALS: BMI 34.5
[2024-11-21 09:20] VITALS: BP 110/66; PULSE 92; RESP 16; TEMP 36.8; O2SAT 95
--- OUTSIDE RECORDS SUMMARY | 2024-11-21 09:25 | XMS_ITS | Clinical Summary ---
Author Organization [facility] Address [address] [place] [address] Care Team Providers Care Venetian Blind Worker Name Role Phone Syed Joaquin MD Primary Care Provider [phone] Social History Tobacco Use Types Packs/Day Years Used Date Smoking Tobacco: Never Assessed Sex and Gender Information Value Date Recorded Sex Assigned at Not on file Gender Identity Not on file Sexual Orientation Not on file Plan of Treatment Health Maintenance Due Date Last Done Comments Hepatitis C Screening 1965 COVID-19 Vaccine (#1) 05/23/1964 Depression Screening 1975 Preventative Health Evaluation 11/20/1981 DTap / Tdap / Td (1 - Tdap) 11/20/1982 Colon Cancer Screening (Colonoscopy) 11/20/2008 Shingrix-Zoster Vaccine (1 of 2) 11/20/2013 Influenza Vaccine (#1) 2024 RSV Adult > 60+ Yrs or Pregn ant (1 - 1-dose 75+ series) 11/20/2038 Hepatitis B Vaccines Aged Out No long er eligible based on patient's age to complete this topic Pneumococcal Vaccine Aged Out No long er eligible based on patient's age to complete this topic RSV Ped < 20 months Aged Out No longe r eligible based on patient's age to complete this topic Care Teams Venetian Blind Worker Relationship Specialty Start Date End Date Syed Joaquin MD [address] [place] [address] [address] [place] [address] PCP - General Lineworker 04/30/20
--- OUTSIDE RECORDS SUMMARY | 2024-11-21 09:25 | XMS_ITS | Patient Health Record ---
Author Organization [facility] Address [address] [place] [address] Care Team Providers Care Founder Ceo & President Name Role Phone Emani (RETIRED) Syed ALICEA Primary Care Provide r Chandan Daly Unavailable [phone] Allergies No Known Allergies Reason For Referral No Information Medications Medication SIG (Take, Route, Frequency, Duration) Notes Start Date End Date Status Ventolin HFA 108 (90 Base) MCG/ACT Inhalation for 30 Active Multivitamin - 1 tablet Orally Once a day for 30 day(s) Active Symbicort 160-4.5 MCG/ACT Inhalation for 60 Active Social History Tobacco Use: Social History Observation Description Date Details (start date - stop date) Current Smoker NA - NA Tobacco Use/Smoking Question Answer Notes Patient is a current smoker How often do you smoke cigarettes? every day How many cigarettes a day do you smoke? 11 Alcohol Screen Question Answer Notes Did you have a drink containing alcohol in the p ast year? No Points 0 Interpretation Negative Section Notes: Smoker 1/2 ppd; no alcohol Problems Problem Type SNOMED Code ICD Code Onset Dates Problem Status W/U Status Risk Notes Problem 889063341 Colon cancer screening (Z12.11) Active confirmed Problem Diverticular disease of colon (999433827) Diverticulosis of large intestine without perforation or abscess without bleeding (K57.30) Active confirmed Problem 616053626 Elevated liver enzymes (R74.8) Active confirmed Problem 790566931 Fatty liver (K76.0) Active confirmed Plan Of Treatment Pending Test Test Name Order Date LIVER PROFILE 03/14/2023 IRON + IBC (FE) 03/14/2023 FERRITIN 03/14/2023 [id number] (A1A) 03/14/2023 FLUOR. ANTINUCLEAR AB SCREEN ([place]) 02/22 Future Test Test Name Order Date COLONOSCOPY 03/14/2023 Insurance Providers Payer Name Payer Address Payer Phone Subscriber Number Group Number Insured Name Patient Relationship to Insured Coverage Start Date Coverage End Date [facility] [address] [address] [place], [place] [id number] DAGOBERTO CASTANEDA Self - patient is the insured MEDICAID [id number] [address] [place] [address] [id number] DAGOBERTO CASTANEDA Self - patient is the insured Medical (General) History Medical History History ICD Code Kidney stones Asthma Denies MO,DM,CVA,renal disease Sigmoid diverticulitis on CT scan in Slightly elevated LFTs in with a CT scan in 2020 describing a fatty liver. There was no evidence of any cirrhosis or portal hypertension on the CT scan Fatty liver and elevated LFT's Surgical History Surgery Date(Month/Year) Lower back surgery 2019 Eye surgery
== END 2024-11-21 09:50 | disposition home or self-care (01) ==
LOC: HO.HMCHD 09:11
PROVIDERS: PCP Internal Medicine; Visit Provider Internal Medicine
DX: K76.0 Fatty (change of) liver, not elsewhere classified (principal); R63.2 Polyphagia; J45.909 Unspecified asthma, uncomplicated

== ENCOUNTER 2025-02-13 07:53 | Outpatient (AMB) | payer OTHER, SELFPAY ==
--- OUTSIDE RECORDS SUMMARY | 2025-02-13 07:56 | XMS_ITS | Patient Health Record ---
Author Organization [facility] Address [address] [place] [address] Care Team Providers Care Performing Artist Name Role Phone Emani (RETIRED) Syed ALICEA Primary Care Provide r Unavailable Chandan Dozier Unavailable [phone] Allergies No Known Allergies Reason For Referral No Information Medications Medication SIG (Take, Route, Frequency, Duration) Notes Start Date End Date Status Ventolin HFA 108 (90 Base) MCG/ACT Inhalation; Duration: 30 Act catrachita Multivitamin - 1 tablet Orally Once a day; Duration: 30 day(s) Active Symbicort 160-4.5 MCG/ACT Inhalation; Duration: 60 Active Social History Tobacco Use: Social History Observation Description Date Details (start date - stop date) Current Smoker NA - NA Tobacco Use/Smoking Question Answer Notes Patient is a current smoker How often do you smoke cigarettes? every day How many cigarettes a day do you smoke? 11-20 Alcohol Screen Question Answer Notes Did you have a drink containing alcohol in the p ast year? No Points 0 Interpretation Negative Section Notes: Smoker 1/2 ppd; no alcohol Problems Problem Type SNOMED Code ICD Code Onset Dates Problem Status W/U Status Risk Notes Problem Information temporarily unavailable Colon cancer screening (Z12.11) Active confirmed Problem Information temporarily unavailable Diverticulosis of large intestine without perforation or abscess without bleeding (K57.30) Active confirmed Problem Information temporarily unavailable Elevated liver enzymes (R74.8) Active confirmed Problem Information temporarily unavailable Fatty liver (K76.0) Active confirmed Plan Of Treatment Pending Test Test Name Order Date LIVER PROFILE 03/14/2023 IRON + IBC (FE) 03/14/2023 FERRITIN 03/14/2023 [id number] (A1A) 03/14/2023 FLUOR. ANTINUCLEAR AB SCREEN ([place]) 02/22 Future Test Test Name Order Date COLONOSCOPY 03/14/2023 Insurance Providers Payer Name Payer Address Payer Phone Subscriber Number Group Number Insured Name Patient Relationship to Insured Coverage Start Date Coverage End Date [facility] [address] [address] [place], [place] [id number] DAGOBERTO CASTANEDA Self - patient is the insured [id number] [address] [place] [address] [id number] DAGOBERTO CASTANEDA Self - patient is the insured Medical (General) History Medical History History ICD Code Kidney stones Asthma Denies DE,DM,CVA,renal disease Sigmoid diverticulitis on CT scan in Slightly elevated LFTs in with a CT scan in 2020 describing a fatty liver. There was no evidence of any cirrhosis or portal hypertension on the CT scan Fatty liver and elevated LFT's Surgical History Surgery Date(Month/Year) Lower back surgery 2019 Eye surgery
--- OUTSIDE RECORDS SUMMARY | 2025-02-13 07:56 | XMS_ITS | Clinical Summary ---
Author Organization [facility] Address [address] [place] [address] Care Team Providers Care Performance Improvement Director Name Role Phone Syed Joaquin MD Primary Care Provider [phone] Social History Tobacco Use Types Packs/Day Years [...] age to complete this topic Care Teams Performance Improvement Director Relationship Specialty Start Date End Date Syed Joaquin MD [address] [place] [address] [address] [place] [address] PCP - General Cement Cutter 04/30/20
[2025-02-13 07:58] VITALS: BP 126/82; PULSE 100; TEMP 36.3; O2SAT 98; BMI 30.2
--- NOTE | 2025-02-13 07:58 | MHC.PC.OV ---
Vital Signs 02/13/25 07:58 Height 5 ft 7 in Weight 87.543 kg BMI 30.2 BP 126/82 Blood Pressure Location Lt brachial Position Sitting Pulse 100 Pulse Source Pulse Oximeter Temp 97.3 F Temp Source Temporal Artery Scan Pulse Oximetry (%) 98 Oxygen Delivery Method Room Air Intake Visit Reasons: 2 Month F/U / Dr Arellano / Dr Joaquin Assistant Center Director Required: No Accompanied by: Self / Same As Patient Allergies No Known Allergies Allergy (Verified 02/13/25 07:58) Medication List - Last Reconciled 02/13/25 by LM Parnell budesonide-formoterol 160-4.5 mcg/actuation (Symbicort) 1 puff inhalation BID fenofibrate 54 mg PO BID fexofenadine ([facility]i All[facility]) 180 mg PO DAILY multivitamin 1 tab PO DAILY phentermine 37.5 mg PO DAILY Ventolin HFA 90 mcg/actuation (albuterol sulfate) 2 puffs inhalation QID PRN NS Tobacco use date assessed: 02/13/25 Dental Screening Dental Screen Date: 02/13/25 Did you have a dental visit in the last 12 months?: No Did you have a dental problem in the last 6 months where you did not have access to dental care?: No HPI HPI Comments History of Present Illness Details The patient is a 59 year old male with past medical history of dyslipidemia, back pain, kidney stone, constipation presenting to establish care. Dyslipidemia-on fenofibrate. He is frustated by weight gain. COPD/astham-on symbicort, albuterol. Table Obesity-current BMI 30.2. Has lost 30 lb over the last 4 months, has been started on phentermine by prior PCP. Reporting side effects including decreased urinary output with weak stream. He has also improved his diet though does not seem to be eating enough protein as he is reporting some loose skin. He is exercising with weights and brisk cardio daily. Health Maintenance: 06/23/2023 colonoscopy-5 year follow-up due to tubular adenoma x2. Dr. Jacoby HEALY CONSTITUTIONAL: Denies weight loss, fever and chills. HEENT: Denies changes in vision and hearing. RESPIRATORY: Denies SOB and cough. CV: Denies palpitations and CP GI: Denies abdominal pain, nausea, vomiting and diarrhea. : Denies dysuria and urinary frequency. MSK: Denies new myalgia and joint pain. SKIN: Denies rash and pruritus. NEUROLOGICAL: Denies headache PSYCHIATRIC: Denies recent changes in mood. PHYSICAL EXAM: GENERAL: Alert and oriented x 3. NAD EYES: EOMI. Anicteric. HENT: Moist mucous membranes. No scleral icterus. No cervical lymphadenopathy. LUNGS: Clear to auscultation bilaterally. CARDIOVASCULAR: Regular rate and rhythm. No murmur. No JVD. ABDOMEN: Soft, non-tender +bs EXTREMITIES: No edema. Non-tender. SKIN: No rashes or lesions. Warm. NEUROLOGIC: No focal neurological deficits. CN II-XII grossly intact PSYCHIATRIC: Cooperative. Appropriate mood and affect [facility] Medical History Fatty liver Diverticulitis Renal calculi Asthma Surgical History History of colonoscopy (~06/22/23) Hx of eye surgery History of back surgery Family History (Updated 02/13/25 @ 08:07 by Michelle Bajwa MA) Mother No problems noted. Father No problems noted. Social History Housing: Apartment Patient Tobacco Use Status: Current everyday Tobacco user Tobacco use type: Cigarette Cigarette Packs Per Day: 0.5 Cigarettes Per Day: 10.0 e-Cigarette/Vaping Use: Currently Using Second Hand Smoke Exposure: No Current occupational status: unemployed Cognitive needs: No Hearing needs: No Vision needs: Yes (rx glasses) Questionnaire PHQ-9 Over the last 2 weeks, how often have you been bothered by any of the following problems? 1. Little interest or pleasure in doing things: not at all 2. Feeling down, depressed, or hopeless: several days (sometime some anxiety attack ) 3. Trouble falling or staying asleep, or sleeping too much: not at all 4. Feeling tired or having little energy: not at all 5. Poor appetite or overeating: not at all 6. Feeling bad about yourself - or that you are a failure or have let yourself or your family down: not at all 7. Trouble concentrating on things, such as reading the newspaper or watching television: not at all 8. Moving or speaking so slowly that other people could have noticed. Or the opposite - being so fidgety or restless that you have been moving around a lot more than usual: not at all 9. Thoughts that you would be better off or of hurting yourself in some way: not at all Total score: 1 Source: Developed by Drs. Chandan Fair, Aylin Santacruz, Baron Branham and colleagues, with an educational will from [employer]. Thrive Questionnaire Date Thrive assessed: 02/13/25 I am a: Patient Within the past 12 months, did the food you bought not last and you didn't have the money to get more?: Never true Within the past 12 months, did you worry whether your food would run out before you got money to buy more?: Never true Do you have trouble paying for medicines?: No Do you have trouble getting transportation to medical appointments?: No Do you have trouble paying your heating and electricity bill?: No Do you have trouble taking care of your child, family member or friend?: No Do you have trouble with day-to-day activities such as bathing, preparing meals, shopping, managing finances, etc.?: No Are you currently unemployed and looking for a job?: No Are you interested in more education?: No THRIVE Score: 0 AUDIT C Alcohol Use Questionnaire (AUDIT-C) 1. How often do you have a drink containing alcohol?: Never 3. How often do you have six or more drinks on one occasion?: Never Total Score: 0 GURMEET-7 AMB Questionnaire GURMEET-7 Date GURMEET - 7 assessed: 02/13/25 Feeling nervous, anxious, or on edge: 0 = Not at all Not being able to stop or control worryin = Not at all Worrying too much about different things: 0 = Not at all Trouble relaxin = Not at all Being so restless that it is hard to sit still: 0 = Not at all Becoming easily annoyed or irritable: 0 = Not at all Feeling afraid as if something awful might happen: 0 = Not at all Total GURMEET-7 score (0-4 normal; 5-9 mild; 10-14 moderate; 15-21 severe): 0 Source: Developed by Aylin PickardW. Noam, Baron Branham and colleagues, with an educational will from [employer]. Physical exam (Primary Care) Vital Signs: Last Vital Signs Temp 97.3 F 02/13/25 07:58 Pulse 100 02/13/25 07:58 BP 126/82 02/13/25 07:58 Pulse Ox 98 02/13/25 07:58 Oxygen Delivery Method Room Air 02/13/25 07:58 BMI result Body Mass Index 30.2 Tobacco/Smoking Status: Tobacco use Status Tobacco use date assessed 02/13/25 02/13/25 07:59 Patient Tobacco Use Status Current everyday Tobacco 02/13/25 07:59 Tobacco use type Cigarette 02/13/25 07:59 e-Cigarette/Vaping Use Never Used 02/13/25 07:59 PHQ-9: PHQ-9 Score PHQ-9: Total score 0 02/13/25 07:59 Thrive Assessment: Date of Thrive Assessment Date Thrive assessed 02/13/25 02/13/25 07:59 Coding Level of Care Code Est Pt Level 4 (56739) Complex EM visit Add On G2211 Diagnoses Asthma, unspecified asthma severity, unspecified whether complicated, unspecified whether persistent J45.909 Asthma severity: unspecified severity Asthma persistence: unspecified Asthma complication type: unspecified Fatty liver K76.0 Obesity E66.9 Assessment & Plan Assessment & Plan (1) Asthma: Code(s): J45.909 - Unspecified asthma, uncomplicated Category: Medical Qualifiers: Asthma severity: unspecified severity Asthma persistence: unspecified Asthma complication type: unspecified Qualified Code(s): J45.909 - Unspecified asthma, uncomplicated Plan: Stable. Continue maintenance inhaler, albuterol inhaler only as needed for shortness of breath and wheezing. (2) Fatty liver: Code(s): K76.0 - Fatty (change of) liver, not elsewhere classified Category: Medical Plan: Continue working on weight loss efforts. Will monitor liver panel q.6 months. (3) Obesity: Code(s): E66.9 - Obesity, unspecified Plan: Commended on weight loss efforts thus far. Continue with healthy diet but advised to increase protein intake and can use collagen supplement as needed. Given phentermine use, he is referred to weight management for further management. Can continue for now. Continue with regular exercise Plan Follow-up in 6 months. Labs to be completed several days prior to visit. Orders: Orders Complete Blood Count Auto Diff 6 Months E66.9 - Obesity, unspecified, J45.909 - Unspecified asthma, uncomplicated, K76.0 - Fatty (change of) liver, not elsewhere classified Lipid Panel 6 Months E66.9 - Obesity, unspecified, J45.909 - Unspecified asthma, uncomplicated, K76.0 - Fatty (change of) liver, not elsewhere classified Liver Panel 6 Months E66.9 - Obesity, unspecified, J45.909 - Unspecified asthma, uncomplicated, K76.0 - Fatty (change of) liver, not elsewhere classified TSH reflex Free T4 6 Months E66.9 - Obesity, unspecified, J45.909 - Unspecified asthma, uncomplicated, K76.0 - Fatty (change of) liver, not elsewhere classified Basic Metabolic Panel 6 Months E66.9 - Obesity, unspecified, J45.909 - Unspecified asthma, uncomplicated, K76.0 - Fatty (change of) liver, not elsewhere classified Hemoglobin A1c 6 Months E66.9 - Obesity, unspecified, J45.909 - Unspecified asthma, uncomplicated, K76.0 - Fatty (change of) liver, not elsewhere classified Referrals Medical Weight Management Referral E66.9 - Obesity, unspecified, J45.909 - Unspecified asthma, uncomplicated, K76.0 - Fatty (change of) liver, not elsewhere classified
== END 2025-02-13 08:25 | disposition home or self-care (01) ==
LOC: HO.HMCHD 07:53
PROVIDERS: PCP Internal Medicine; Visit Provider Physician Assistant
DX: J45.909 Unspecified asthma, uncomplicated (principal); K76.0 Fatty (change of) liver, not elsewhere classified; E66.9 Obesity, unspecified

== ENCOUNTER → 2025-02-13 07:53 | Outpatient (BNVA) | payer OTHER, SELFPAY | PROVIDERS: PCP Internal Medicine; Visit Provider Physician Assistant | DX: K76.0 Fatty (change of) liver, not elsewhere classified (principal); J45.909 Unspecified asthma, uncomplicated; E66.9 Obesity, unspecified; Z68.30 Body mass index [BMI] 30.0-30.9, adult | CPT/HCPCS: 99212 ==